=== PATIENT | female | born 1945 | race Caucasian/White ===

== ENCOUNTER 2019-08-09 21:52 | Inpatient (IN) | payer OTHER ==
[~2019-08-09] VITALS: Ht 170.2 cm; Wt 64.9 kg
[~2019-08-09 21:52] MED LIST: MECLIZINE 25 MG25 M1 PO; NORCO 5-325 TA1 EACH PO
[2019-08-09] MEDS ORDERED: IPRAT-ALBUT 0.5-3 ML INH (22:01)
[2019-08-09 22:41] LABS: BE(vivo) 2.7 mmol/L (-2 to +3); HCO3 28.2 mmol/L (22.0-26.0); PCO2 46.3 mmHg (35.0-45.0); PO2 203.5 mmHg (80.0-100.0); pH 7.402 (7.360-7.450); sO2 99.4 % (92.0-98.0)
[2019-08-09 22:45] LABS: ABSOLUTE NEUTROPHILS 7.6 thou/uL (1.4-8.2); BASOPHILS 0.3 % (0.0-2.0); HEMATOCRIT 45.8 % (37.0-47.0); HEMOGLOBIN 15.3 gm/dL (12.0-15.0); LYMPHOCYTES 6.7 % (24.0-44.0); MCHC 33.4 g/dL (28.0-37.0); MCV 92.9 fL (80.0-100.0); MONOCYTES 4.7 % (1.0-8.0); PLATELET COUNT 278 thou/uL (150-400); POLYS 88.3 % (36.0-66.0); RBC 4.93 mil/uL (4.20-5.00); RDW 14.5 % (10.5-14.5); WBC 8.6 thou/uL (4.0-11.0)
[2019-08-09 22:57] LABS: ANION GAP 9 mmol/L (7-16); BUN 11 mg/dL (7-18); CALCIUM 9.4 mg/dL (8.5-10.1); CHLORIDE 104 mmol/L (98-107); CO2 29 mmol/L (21-32); CREATININE 0.9 mg/dL (0.6-1.0); GLUCOSE 142 mg/dL (74-106); POTASSIUM 3.4 mmol/L (3.5-5.1); SODIUM 142 mmol/L (136-145)
[2019-08-09 23:08] LABS: ALBUMIN 4.5 g/dL (3.4-5.0); SGOT 26 U/L (15-37); SGPT 23 U/L (30-65); TOTAL BILIRUBIN 0.4 mg/dL (0.2-1.0); TOTAL PROTEIN 7.5 g/dL (6.4-8.2); TROPONIN-I <0.06 ng/mL (<0.06)
--- NOTE | 2019-08-09 23:21 | NUR ---
SON, TIGRE SALGADO AND DAUGHTER, SOLEDAD SALGADO TO INFORM THEM THAT THE PATIENT WILL BE ADMITTED, WILL CALL BACK WITH A ROOM NUMBER. ALSO, CHILDREN WERE NOTIFIED THAT THE DOGS NEEDED TO BE TAKEN CARE OF. DAUGHTER STATES THAT IS NOT A PROBLEM. DOGS HAVE BEEN FED, TAKEN OUT, WATERED, PLAYED OUT IN THE YARD AND HOUSE ALARM HAS BEEN SET.
[2019-08-10] VITALS (7 sets, daily range): BP systolic 92–156; BP diastolic 48–98
--- NOTE | 2019-08-10 04:27 | NUR ---
PT ADMITTED FROM ER APPROXIMATELY 0105 AM. RR 24-28. SAT 97-98%. SOLUMEDROL GIVEN IV. MUCOMYST GIVE PER RT. hYDROXYZINE GIVEN FOR ANXIETY. CLARIFIED WITH Bryce WHETHER PT CAN HAVE ZOFRAN AFTER HYDROXIZINE FOR NAUSEA. PT STATED THAT ITS STARTING TO HELP. k 3.4. POTASSIUM 20MEQ GIVEN. PT IS REFUSING BIPAP FOR NOW. RT HERE TRYING TO CONVINCE HER TO USE BIPAP.
--- NOTE | 2019-08-10 05:31 | NUR ---
PT RESTING BETTER NOW. RT TX GIVEN. NAUSEA SUBSIDED, BIPAP MASK ON. WILL CONTINUE TO MONITOR PT FOR CHANGES.
[2019-08-10 09:38] LABS: CALCIUM 8.9 mg/dL (8.5-10.1); CREATININE 0.7 mg/dL (0.6-1.0); POTASSIUM 3.8 mmol/L (3.5-5.1)
--- NOTE | 2019-08-10 18:50 | NUR ---
ASSUMED CARE AT SHIFT CHANGE, ASSESSMEN DOCUMNTED. SOME WHAT ANXIOUS HIS MORNING, AND CALM THROUGH OUT TH RES OF THE DAY. VSS AND SOB WIH ACIVIIES. DR MARCOS NOTIFIED ABOUT POSITIVE BLD CULTURES, NEGIIVE COVID19, AND NO NEW ORDERS RECIEVED. PROGRESSING TOWARDS GOAL AND WILL CONTINUE WITH POC.
[2019-08-11] VITALS (9 sets, daily range): BP systolic 87–146; BP diastolic 42–76
--- NOTE | 2019-08-11 02:47 | NUR ---
PT PROGRESSING TOWARDS D/C GOALS. PT ALERT AND ORIENTED X4. BP MODERATELY LOW SBP 80-90'S. NOTIFIED NADIRA BULLOCK OF BP AND BLD CX BACK POSITIVE FOR JAMIN POSITIVE COCCI. PT ALREADY ON LEVOFLOXACIN. NO OTHER ORDERS FOR ABX GIVEN. NORMAL SALINE BOLUS 250 ML STARTED ORDERED FOR BP. LAST TEMPERATURE WAS 98.0 ORAL. TRILOLGY BIPAP ON WITH 3LNC BLED IN. LUNGS SOUND DININISHED. NO WHEEZES TONIGHT. RESPIRATIONS ARE UNLABORED. SAT 93-94%. RESP TX GIVEN. INSTRUCTED PT TO NOT GET OOB WITHOUT ASSISTANCE. WILLCONTINUE TO MONITOR PT FOR CHANGES.
--- NOTE | 2019-08-11 05:14 | NUR ---
PT IS RESTING QUIETLY. BP 87/43. NOTIFIED NADIRA BULLOCK. ANOTHER 250 ML NS BOLUS INFUSING. ENCOURAGED PT TO DRINK SOME FLUIDS. SHE STATED SHE WAS NOT THIRSTY AND WENT BACK TO SLEEP.
[2019-08-11 10:00] LABS: ABSOLUTE NEUTROPHILS 12.7 thou/uL (1.4-8.2); BASOPHILS 0.1 % (0.0-2.0); HEMATOCRIT 42.4 % (37.0-47.0); HEMOGLOBIN 13.9 gm/dL (12.0-15.0); LYMPHOCYTES 3.6 % (24.0-44.0); MCH 30.8 pg (26.0-34.0); MCHC 32.8 g/dL (28.0-37.0); MCV 93.8 fL (80.0-100.0); MONOCYTES 2.6 % (1.0-8.0); PLATELET COUNT 244 thou/uL (150-400); POLYS 93.7 % (36.0-66.0); RBC 4.52 mil/uL (4.20-5.00); RDW 14.3 % (10.5-14.5); WBC 13.5 thou/uL (4.0-11.0)
[2019-08-11 10:08] LABS: CALCIUM 8.9 mg/dL (8.5-10.1); CREATININE 1.1 mg/dL (0.6-1.0); POTASSIUM 3.6 mmol/L (3.5-5.1)
--- NOTE | 2019-08-11 18:32 | NUR ---
ASSUMED PATIENT CARE AT 0700. A/O X4. SOB WITH EXERTION. DENIES PAIN. AMBULATED IN ROOM. VSS, AFEBRILE. SLOWLY TOWARDS POC GOALS.
[2019-08-11 18:57] LABS: URINE BILIRUBIN NEGATIVE (Negative); URINE BLOOD NEGATIVE (Negative); URINE CLARITY CLEAR; URINE COLOR YELLOW; URINE GLUCOSE-RANDOM* NEGATIVE (Negative); URINE KETONES NEGATIVE (Negative); URINE LEUKOCYTES-REFLEX NEGATIVE (Negative); URINE NITRITE-REFLEX NEGATIVE (Negative); URINE PROTEIN (DIPSTICK) TRACE (Negative); URINE SPECIFIC GRAVITY 1.025 (1.005-1.035); URINE UROBILINOGEN 0.2 E.U./dl (0.2-1.0)
--- NOTE | 2019-08-11 19:34 | NUR ---
PT ALERT AND ORIENTED X4.VSS AFEBRILE. LUNGS DIMINISHED AND UNLABORED ON 2LNC SATS WNL. UP TO BSC VOIDING CLEAR YELLOW URINE. GAIT IS STEADY TODAY. NO C/O PAIN. NO S/S DISTRESS PRESENTLY.
--- NOTE | 2019-08-12 00:28 | NUR ---
PT PROGRESSING SLOWLY TOWARDS D/C GOALS. LUNGS ARE DIMINSHED BUT UNLABORED. XANAX GIVEN FOR ANXIETY AFTER RT TX GIVEN. TRILOGY APPLIED PER RT. PT READY FOR BED. INSTRUCTED PT TO PLEASE CALL NS FOR HELP BEFORE GETTING OOB DUE TO ALL CORDS ATTACHED. SHE AGREED. BED ALARM ON. VSS AFEBRILE. [facility] INFUSING RIGHT FA.
--- NOTE | 2019-08-12 01:09 | NUR ---
REPORT GIVEN TO SHAUNNA THORNE WHO ASSUMED CARE OF PT.
[2019-08-12 03:38] VITALS: BP 146/77; BP 183/88
--- NOTE | 2019-08-12 04:38 | NUR ---
PER JEN, PT IS ALLOWED TO BE REMOVED FROM ISOLATION ON 08/10.
--- NOTE | 2019-08-12 07:50 | NUR ---
ASSUMED CARE OF PATIENT SHE IS W/O PAIN OR RESP DISTRESS.PATIENT WANTS TO SLEEP UNTIL BREAKFAST. ACCU CHECK'S AC AND HS. PT IS COOPERATIVE WITH CARE.
[2019-08-12 08:23] VITALS: BP 133/72
[2019-08-12] MEDS ORDERED: PREDNISONE 5 MG5 M1 PO (08:25)
[2019-08-12] MEDS ORDERED: CEFUROXIME500 MG PO (08:25)
--- NOTE | 2019-08-12 08:31 | EKG ---
[facility] [place] [address] ELECTROCARDIOGRAM REPORT Name: NEGRA SALGADO Room #: 349-I ADM IN M.R.#: [id number] Admission: 08/09/19 Attend Phys: Emil Moffett MD Discharge: Date of : 45 Report #: [id number] THIS REPORT FOR: cc: RICK - No family physician/PCP FAM - No family physician/PCP Mele Torres MD [facility] THIS REPORT FOR: //name// 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: [facility] : 1945 Requested By: Florin Burroughs Order Number: [id number] MD: Mele Torres Measurements Intervals Radisson Rate: 74 P: 89 IN: 123 QRS: 112 QRSD: 92 T: 74 QT: 383 QTc: 425 Interpretive Statements Sinus rhythm Abnormal R-wave progression, late transition No previous ECG available for comparison Electronically Signed On 08-12-2019 8:29:44 CDT by Mele Torres [email or web address] <ELECTRONICALLY SIGNED> By: Mele Torres MD, FACC 08/12/19 0829 [id number] Mele Torres MD, [facility] /EPI
--- NOTE | 2019-08-12 12:00 | NUR ---
INITIAL ASSESSMENT: BRIGITTE reviewed chart and spoke with nursing and attending physician. Pt was admitted from home due to exacerbation of COPD. Pt is Enhanced Isolation to r/o COVID-19. Pt's test is negative. Pt may discharge home later today pending pulmonology. SW placed call to pt's room. No answer. SW left voice message for pt on her cell phone. SW spoke with pt's son, Jonnathan, via phone. Introduced role of SW. Pt is normally alert/orientated x 4. Pt lives at home alone. Pt has 8-10 steps from the garage into the house, and then 6 steps from the main level up to the second level where her bedroom is. Pt does not use any DME. Pt has a home trilogy machine per pt's son and is normally on 1L of O2. Unsure name of provider for the home O2 or trilogy machine. Pt's tongsman is Dr. Velasquez at [facility]. PT ordered to evaluate pt for any discharge needs. Pt's family is available to provide transportation home when medically stable. BRIGITTE is following to assist as needed with discharge planning.
[2019-08-12 20:00] VITALS: BP 132/67
--- NOTE | 2019-08-13 00:50 | NUR ---
UPON INITIAL ASSESSMENT, PT WAS A BIT ANXIOUS ABOUT THE FUTURE PLAN OF CARE. RN REASSURED THE PT AND EXPLAINED THE REASONING BEHIND THE EXTRA STAY AND WHAT IS CURRENTLY BEING DONE FOR THE PT AT THIS TIME. ALSO EXPLAINED TO THE PT THAT SHE WAS IN THE CENTER OF THE CARE TEAM AND TO FEEL FREE TO CALL IF ANYTHING WAS NEEDED AND HER STAY COULD BE MORE COMFORTABLE. PT ALSO COMPLAINED OF PAIN AT THE SITE OF IV DURING ABX INFUSION. THIS WAS THE SAME CASE DURING THE AM SHIFT, UPON ASSESSMENT THE IV SITE WAS NOT INFILTRATED, WAS COOL TO THE TOUCH AND HAD SOFT TISSUES SURROUNDING THE SITE. COLD ICE TEA WAS MADE AND PROVIDED PER REQEUEST AND ABX WAS TITRATED DOWN 50% TO ENSURE PT WOULD TOLERATE THE ADMINISTRATION. WILL CONTINUE TO MONITOR AND UPDATE NEEDED. PT ALSO DECLINED THE ACCUCHECK STATING THAT SHE DID NOT NEED IT ANY LONGER
[2019-08-13 05:19] LABS: CREATININE 0.7 mg/dL (0.6-1.0); POTASSIUM 3.4 mmol/L (3.5-5.1)
[2019-08-13 08:46] VITALS: BP 120/62
--- NOTE | 2019-08-13 10:50 | NUR ---
PT CARE ASSUMED AT 0700, PT ALERT AND ORIENTED X4, DENIES ANY PAIN, NAUSEA AND VOMITING. PT IS ON 3L OF OXYGEN NOW, BASELINE AT HOME IS 2L. SOB WITH EXERTION. CALL LIGHT AND TABLE IN REACH. PT IS AD ALEXX TO BATHROOM 0930 DR. MARCOS PUT IN FOR DISCHARGE ORDERS, WAITING FOR DR. LEWIS TO SIGN OFF. WILL CONTINUE TO MONITOR AND UPDATE.
[2019-08-13 14:19] VITALS: BP 146/74
--- NOTE | 2019-08-13 14:36 | NUR ---
DISCHARGE NOTE: SW reviewed chart and spoke with nursing and attending physician. Pt is medically stable for discharge home today. Pt had CT of her chest earlier today. SW spoke with pt via phone to discuss discharge plan. Pt confirms that she has home O2 in place and has a home trilogy machine. Pt denies needing any additional services. Pt's grandson will be staying with her for awhile. Pt's family to provide transportation home. Pt states she has a secondary insurance, but does not have the card with her. SW encouraged pt to call the business office when she gets home to provide the insurance info. Pt verbalized understanding. No additional SW needs identified at this time, but is available to assist should needs arise.
[2019-08-13] MEDS ORDERED: LEVAQUIN 500 M500 M3 PO (15:05)
--- NOTE | 2019-08-13 15:40 | NUR ---
DISCHARGE INSTRUCTIONS, PT EDUCATED ON MEDICATION AND SIDE EFFECTS. ALL BELONGINGS PACKED. WAITING ON PT SON TO COME PICK HER UP
== END 2019-08-13 16:18 | disposition home or self-care (01) | DRG 189 ==
LOC: ER 21:52 → EROBS 23:21 → 3W 23:21
PROVIDERS: Emergency Medicine; Nurse Practitioner Family; Specialist; ADMIT Internal Medicine; ATTEND Internal Medicine
PROC: 5A09357 Assistance with Respiratory Ventilation, Less than 24 Consecutive Hours, Continuous Positive Airway Pressure (ICD-10-PCS; principal; 2019-08-09)
PROC: 5A09357 Assistance with Respiratory Ventilation, Less than 24 Consecutive Hours, Continuous Positive Airway Pressure (ICD-10-PCS; 2019-08-10)
PROC: 5A09357 Assistance with Respiratory Ventilation, Less than 24 Consecutive Hours, Continuous Positive Airway Pressure (ICD-10-PCS; 2019-08-11)
PROC: 5A09357 Assistance with Respiratory Ventilation, Less than 24 Consecutive Hours, Continuous Positive Airway Pressure (ICD-10-PCS; 2019-08-13)
DX: J96.22 Acute and chronic respiratory failure with hypercapnia (principal); N17.9 Acute kidney failure, unspecified; R78.81 Bacteremia; J44.1 Chronic obstructive pulmonary disease with (acute) exacerbation; E44.0 Moderate protein-calorie malnutrition; J96.21 Acute and chronic respiratory failure with hypoxia; J32.9 Chronic sinusitis, unspecified; Z79.899 Other long term (current) drug therapy; Z03.818 Encounter for observation for suspected exposure to other biological agents ruled out; Z88.8 Allergy status to other drugs, medicaments and biological substances; Z99.81 Dependence on supplemental oxygen; Z68.22 Body mass index [BMI] 22.0-22.9, adult
CPT/HCPCS: 10779; 10879